=== PATIENT | female | born 1965 | race Caucasian/White ===

== ENCOUNTER 2016-12-04 19:38 | Emergency (ER) | payer MEDICAID ==
[~2016-12-04] VITALS: Ht 175.3 cm; Wt 80.6 kg
[~2016-12-04 19:38] MED LIST: CIPR500T4 PO; FIORIC PO; NORE1TAB60 PO; PYRI200T4 PO; TAB-TAB PO
[2016-12-04 20:01] VITALS: BP 113/76; PULSE 86; RESP 18; TEMP 98.9; O2SAT 98
[2016-12-04] MEDS ORDERED: ALBU6.7H INH (20:17)
[2016-12-04] MEDS ORDERED: SYMB80AE INH (20:17)
[2016-12-04] MEDS ORDERED: KETOROLAC TROMETHAMINE 60 MG/2 ML (IM) VIAL IM ONE (20:30)
[2016-12-04] MEDS ORDERED: ONDANSETRON ODT 4 MG TAB PO ONE (20:45)
--- NOTE | 2016-12-04 20:46 | RADHPO ---
EXAM DATE/TIME: 12/04/2016 20:32 [facility] COMPARISON: No previous studies available for comparison. INDICATIONS : Right ankle pain post fall down staris. MEDICAL HISTORY : None. SURGICAL HISTORY : None. ENCOUNTER: Initial ACUITY: 1 day PAIN SCORE: 9/10 LOCATION: Right ankle. FINDINGS: Three view exam was performed of the right ankle. The bony structures are in normal alignment. No e vidence of fracture, dislocation, with soft tissue swelling laterally.. The ankle mortise is intact. No radiopaque foreign bodies are seen. Bony mineralization is normal. Calcaneal spur at insertion Achilles tendon CONCLUSION: No acute bony injury Bonilla Squires MD on December 04, 2016 at 20:43 Board Certified Radiologist. This report was verified electronically.
--- NOTE | 2016-12-04 20:56 | PD ---
HPI Chief Complaint: Injury Time Seen by Provider: 20:20 Travel History International Travel<30 days: No Contact w/Intl Traveler<30days: No Traveled to known affect area: No History of Present Illness HPI Patient is a 50-year-old female presenting with right ankle pain. 2 hours prior to exam she states she was walking down stairs when she slipped and fell. She landed on her buttocks and then slid down the stairs. She hit the back of her head on the stairs but denies headache or loss of consciousness. She states 15 minutes later she was driving when she pressed the accelerator the ankle hurt and this caused her to get nauseated and lightheaded. She has some residual nausea but denies vomiting or abdominal pain. She denies dizziness or loss of consciousness, no daily aspirin or anticoagulant drugs. She denies any neck pain. She denies weakness or paresthesias in her extremities. She denies any pain in the foot, calf or knee on the right. PFSH Past Medical History Asthma: Yes Diminished Hearing: No Headaches: Yes Musculoskeletal: Yes (back pain) Respiratory: Yes (ASTHMA) Tetanus Vaccination: < 5 Years Influenza Vaccination: No ?: Not Past Surgical History Abdominal Surgery: Yes (hysterectomy) Body Medical Devices: (L) leg hardware Section: Yes (X's 2) Gynecologic Surgery: Yes (for endometrosis) Hysterectomy: Yes Tonsillectomy: Yes Social History Alcohol Use: No (denies any present any use) Tobacco Use: No Substance Use: No Allergies-Medications (Allergen,Severity, Reaction): Coded Allergies: Erythromycin (Verified Allergy, Severe, Anaphylaxis, 12/04/16) Onion (Verified Allergy, Severe, VOMIT, 12/04/16) Penicillin (Verified Allergy, Severe, Anaphylaxis, 12/04/16) Sulfa (Verified Allergy, Severe, HIVES, 12/04/16) Reported Meds & Prescriptions Reported Meds & Active Scripts Active Ibuprofen 600 Mg Tab 600 Mg PO Q8HR PRN Reported Symbicort Inh (Budesonide/Formoterol Fumarate) 80-4.5 Mcg/Act Aero 2 Puff INH Q12HR Proventil Hfa 6.7 GM Inh (Albuterol Sulfate) 90 Mcg/Act Aer 1 Puff INH Q4H PRN Review of Systems Except as stated in HPI: all other systems reviewed are Neg Physical Exam Narrative GENERAL: Well-developed and well-nourished adult female in no acute distress. SKIN: Warm and dry. Good turgor without tenting. HEAD: Normocephalic and atraumatic. No hematoma or laceration, mild tenderness palpation of the left posterior occiput. Negative arias and raccoon sign. EYES: PERRL bilaterally, 5mm. EOMI bilaterally. No injection or icterus present. No proptosis. Lids without edema or erythema. ENT: Buccal mucosa pink and moist. Oropharynx free of erythema, tonsillar hypertrophy, masses, swelling, asymmetry and exudates. Uvula midline and airway patent. NECK: Supple, no midline tenderness, crepitus or step-offs. Trachea midline, no JVD. No cervical or facial lymphadenopathy. CARDIOVASCULAR: Regular rate and rhythm without murmurs, rubs, clicks or gallops. Radial, dorsalis pedis and posterior tibial pulses 2+ bilaterally. Brisk capillary refill, less than 2 second, distal tip of all toes of right foot. No pedal edema. RESPIRATORY: Clear to auscultation bilaterally with symmetrical rise and fall, no distress or use of accessory muscles. GASTROINTESTINAL: Non-tender, non-distended. Normal bowel sounds all 4 quadrants. No masses or organomegaly present. MUSCULOSKELETAL: Right ankle has some mild edema laterally without ecchymosis or erythema or warmth. There is lateral and medial malleoli tenderness on the right, lateral greater than medial. No increased laxity of the foot. Patient is most tender over the right anterior talofibular ligament. This range of motion in R dorsiflexion of the right ankle secondary to pain. She can move all 5 toes of the right foot. No pain with palpation of the right tib-fib or knee. Normal range of motion in the right knee. Patient freely moving all four extremities spontaneously. Extremities without clubbing, cyanosis, or edema. No obvious deformities. NEUROLOGIC: CN II-XII grossly intact. Awake and alert. Strength 5/5 bilateral knee flexion, knee extension, plantar and dorsiflexion. Sensation intact distal tip of all toes of right foot. Normal speech. PSYCHIATRIC: Appropriate mood and affect; insight and judgment normal. Data Data Last Documented VS Vital Signs Date Time Temp Pulse Resp B/P Pulse Ox O2 Delivery O2 Flow Rate FiO2 12/04/16 20:01 98.9 86 18 113/76 98 Orders Ketorolac Inj (Toradol Inj) (12/04/16 20:30) Ankle, Complete (Mik3ysx) (12/04/16 20:27) Ice/Cold Pack (12/04/16 20:27) Ondansetron Odt (Zofran Odt) (12/04/16 20:45) Ct Brain W/O Iv Contrast(Rout) (12/04/16 ) Splint Or Brace Apply/Monitor (12/04/16 20:56) Iohexol 350 Inj (Omnipaque 350 Inj) (12/04/16 21:03) MDM Medical Decision Making Medical Screen Exam Complete: Yes Emergency Medical Condition: Yes Differential Diagnosis Ankle sprain versus ankle fracture versus ankle contusion versus concussion versus skull fracture versus intracranial hemorrhage Narrative Course Patient is a 50-year-old female with chief pain of right ankle pain. She does have some tenderness over the medial and lateral malleoli are surface of the right ankle without increased laxity or significant edema or ecchymosis. She is neurovascular intact. He slipped and fell down some stairs and ended hitting her head lightly she claims and has had some minor dizziness and nausea which she achieved to the ankle pain. She has no other neurologic symptoms and her neurologic exam is normal. Given the mechanism, distracting injury and patient's age ordered CT of the head as well as right ankle x-ray. Patient was given Toradol and Zofran. X-ray of the ankle showed no fracture or subluxation. Patient was given Ronny wrap and crutches. CT head was unremarkable. Patient is given prescription for ibuprofen 600 mg.See discharge paperwork for further instructions. The plan was discussed with the patient who acknowledged their understanding and agreement. Reinforced the follow-up with primary care is critically important. Patient instructed on emergent conditions that should prompt return to ED. Diagnosis Primary Impression: Sprain of anterior talofibular ligament of right ankle Qualified Code: S93.491A - Sprain of anterior talofibular ligament of right ankle, initial encounter Additional Impression: Concussion Qualified Code: S06.0X0A - Concussion, without loss of consciousness, initial encounter Patient Instructions: Ankle Sprain (ED), Ankle Sprain Exercises (GEN), General Instructions Additional Instructions: Recommend rest and avoid overexertion Recommend avoiding activities that could result in additional falls or head injuries Take medications as prescribed Apply ice every 1 to 2 hours as needed for pain Avoid maneuvers that aggravate pain Keep RONNY bandage on while being active or using extremity Use crutches when walking to avoid pressure on joint Elevate when at rest Be aware that may take several weeks for sprains to heal fully Follow-up with PCP in 2-3 days Return to the ED for any acute worsening of symptoms Med/Other Pt SpecificInfo: Prescription(s) given Scripts Ibuprofen 600 Mg Jeg300 Mg PO Q8HR PRN (PAIN) #12 TAB Ref 0 Prov:Ben Recinos MD 12/04/16 Disposition: 01 DISCHARGE HOME Condition: Stable Benson Dill III Dec 04, 2016 20:56
--- NOTE | 2016-12-04 20:59 | RADHPO ---
EXAM DATE/TIME: 12/04/2016 20:41 [facility] COMPARISON: No previous studies available for comparison. INDICATIONS : Mechanical fall. Posterior head trauma. RADIATION DOSE: 67.53 CTDIvol (mGy) MEDICAL HISTORY : None SURGICAL HISTORY : Tonsillectomy. Hysterectomy. ENCOUNTER: Initial ACUITY: 1 day PAIN SCALE: 6/10 LOCATION: occipital TECHNIQUE: Multiple contiguous axial images were obtained of the head. Using automated exposure control and adj ustment of the mA and/or kV according to patient size, radiation dose was kept as low as reasonably a chievable to obtain optimal diagnostic quality images. FINDINGS: CEREBRUM: The ventricles are normal for age. No evidence of midline shift, mass lesion, hemorrhage or acute in farction. No extra-axial fluid collections are seen. POSTERIOR FOSSA: The cerebellum and brainstem are intact. The 4th ventricle is midline. The cerebellopontine angle i s unremarkable. EXTRACRANIAL: The visualized portion of the orbits is intact. SKULL: The calvaria is intact. No evidence of skull fracture. CONCLUSION: Normal examination. Bonilla Squires MD on December 04, 2016 at 20:57 Board Certified Radiologist. This report was verified electronically.
[2016-12-04] MEDS ORDERED: IOHEXOL 350 MG/ML 10 ML VIAL (for RAD DIAG) IV ONE (21:03)
[2016-12-04] MEDS ORDERED: IBUP-232 PO (21:03)
== END 2016-12-04 21:18 | disposition home or self-care (01) ==
LOC: PHEFT 19:38
DX: S93.491A Sprain of other ligament of right ankle, initial encounter (principal); S06.0X0A Concussion without loss of consciousness, initial encounter; R11.0 Nausea; R42 Dizziness and giddiness; J45.909 Unspecified asthma, uncomplicated; W10.8XXA Fall (on) (from) other stairs and steps, initial encounter
CPT/HCPCS: 70450; 73610; 96372; 99284; E0113; J1885; Q9967

== ENCOUNTER 2017-12-08 06:38 | Emergency (ER) | payer MEDICAID, OTHER ==
[~2017-12-08] VITALS: Ht 175.3 cm; Wt 80.0 kg
[~2017-12-08 06:38] MED LIST changes: +ALBU6.7H INH; -CIPR500T4 PO; -FIORIC PO; +IBUP-232 PO; -NORE1TAB60 PO; -PYRI200T4 PO; +SYMB80AE INH; -TAB-TAB PO
[2017-12-08] MEDS ORDERED: MELA5 PO (06:43)
[2017-12-08] MEDS ORDERED: MULT-65 PO (06:43)
[2017-12-08] MEDS ORDERED: ESTR2TAB PO (06:43)
[2017-12-08 06:44] VITALS: BP 116/71; PULSE 68; RESP 18; TEMP 97.8; O2SAT 98
[2017-12-08 07:10] VITALS: RESP 16; O2SAT 98
[2017-12-08 07:15] VITALS: BP 108/59; PULSE 62; RESP 16; O2SAT 98
[2017-12-08] MEDS ORDERED: ASPIRIN 81 MG CHEW TAB PO ONE (07:45)
[2017-12-08] MEDS ORDERED: SODIUM CHLORIDE 0.9% FLUSH 10 ML FLUSH IVF PRN (07:45)
--- NOTE | 2017-12-08 07:58 | PD ---
HPI . Chest pain Chief Complaint: Chest Pain Time Seen by Provider: 07:06 Travel History International Travel<30 days: No Contact w/Intl Traveler<30days: No Traveled to known affect area: No History of Present Illness HPI This patient presents with a chief complaint of chest pain. Onset was this morning. It has been getting progressively worse. It starts in the center of her chest and radiates to her left neck and shoulder. She rates the pain at 4/ 10 and notes no modifying factors. This patient reports the onset of cold symptoms a couple of days ago. She states that everyone in her office has cold-like symptoms. She states that she started with a sore throat and just feeling generally poorly. She does have a cough but it is mild and nonproductive. She has a medical history of asthma. [facility] Past Medical History Asthma: Yes Diminished Hearing: No Headaches: Yes Musculoskeletal: Yes (back pain) Respiratory: Yes (ASTHMA) Immunizations Current: Yes Influenza Vaccination: No ?: Not Past Surgical History Abdominal Surgery: Yes (hysterectomy) Body Medical Devices: (L) leg hardware Section: Yes (X's 2) Gynecologic Surgery: Yes (for endometrosis) Hysterectomy: Yes Tonsillectomy: Yes Social History Alcohol Use: No (rare) Tobacco Use: No (never) Substance Use: No Allergies-Medications (Allergen,Severity, Reaction): Coded Allergies: Sulfa (Sulfonamide Antibiotics) (Unverified Allergy, Severe, HIVES, ) erythromycin base (Unverified Allergy, Severe, Anaphylaxis, 12/08/17) onion (Unverified Allergy, Severe, VOMIT, 07/12/17) penicillin G (Unverified Allergy, Severe, Anaphylaxis, 12/08/17) Reported Meds & Prescriptions Reported Meds & Active Scripts Active Reported Melatonin 5 Mg Tab 5 Mg PO HS Multi-Vitamin Daily (Multiple Vitamin) 1 Tab Tab 1 Tab PO DAILY Estradiol 2 Mg Tab 2 Mg PO DAILY Review of Systems Except as stated in HPI: all other systems reviewed are Neg General / Constitutional: No: Fever, Chills HENT: Positive: Lightheadedness, Sore Throat Cardiovascular: Positive: Chest Pain or Discomfort Respiratory: Positive: Cough, No: Shortness of Breath Gastrointestinal: Positive: Nausea Physical Exam Narrative GENERAL: Awake and alert and in no acute distress. SKIN: Warm and dry. Normal color and turgor. HEAD: Normocephalic/atraumatic. EYES: Pupils are equal. Extraocular movements are intact. No conjunctival injection or discharge. ENT: No edema of the nasal turbinates. Oropharynx has no erythema, and she date or tonsillar enlargement. NECK: Normal range of motion. No cervical lymphadenopathy. CARDIOVASCULAR: Regular rate and rhythm. Heart sounds are normal. RESPIRATORY: Nonlabored respirations. Lungs are clear with full air movement throughout. She does have chest wall tenderness in the center of her chest and on the left side of her chest. MUSCULOSKELETAL: Atraumatic. No peripheral edema. NEUROLOGICAL: Nonfocal. PSYCHIATRIC: Appropriate mood and affect. Data Data Last Documented VS Vital Signs Date Time Temp Pulse Resp B/P (MAP) Pulse Ox O2 Delivery O2 Flow Rate FiO2 12/08/17 07:15 62 16 108/59 (75) 98 Nasal Cannula 2.00 12/08/17 06:44 97.8 Orders Orders Basic Metabolic Panel (Bmp) (12/08/17 07:39) Complete Blood Count With Diff (12/08/17 07:39) Magnesium (Mg) (12/08/17 07:39) Troponin I (12/08/17 07:39) Chest, Single Ap (12/08/17 07:39) Ecg Monitoring (12/08/17 07:39) Iv Access Insert/Monitor (12/08/17 07:39) Oximetry (12/08/17 07:39) Aspirin Chew (Aspirin Chew) (12/08/17 07:45) Sodium Chloride 0.9% Flush (Ns Flush) (12/08/17 07:45) Chest, Expiration Only (12/08/17 08:48) Labs Laboratory Tests Test 12/08/17 06:55 12/08/17 08:48 Blood Urea Nitrogen 18 MG/DL Creatinine 1.00 MG/DL Random Glucose 84 MG/DL Calcium Level 8.5 MG/DL Magnesium Level 2.1 MG/DL Sodium Level 139 MEQ/L Potassium Level 4.3 MEQ/L Chloride Level 100 MEQ/L Carbon Dioxide Level 27.8 MEQ/L Anion Gap 11 MEQ/L Estimat Glomerular Filtration Rate 58 ML/MIN Troponin I LESS THAN 0.02 NG/ML White Blood Count 7.0 TH/MM3 Red Blood Count 4.40 MIL/MM3 Hemoglobin 12.8 GM/DL Hematocrit 38.8 % Mean Corpuscular Volume 88.2 FL Mean Corpuscular Hemoglobin 29.2 PG Mean Corpuscular Hemoglobin Concent 33.1 % Red Cell Distribution Width 11.8 % Platelet Count 155 TH/MM3 Mean Platelet Volume 9.1 FL Neutrophils (%) (Auto) 54.2 % Lymphocytes (%) (Auto) 35.2 % Monocytes (%) (Auto) 5.9 % Eosinophils (%) (Auto) 1.8 % Basophils (%) (Auto) 2.9 % Neutrophils # (Auto) 3.8 TH/MM3 Lymphocytes # (Auto) 2.5 TH/MM3 Monocytes # (Auto) 0.4 TH/MM3 Eosinophils # (Auto) 0.1 TH/MM3 Basophils # (Auto) 0.2 TH/MM3 CBC Comment DIFF FINAL Differential Comment MDM Medical Decision Making Medical Screen Exam Complete: Yes Emergency Medical Condition: Yes Interpretation(s) EKG shows a normal sinus rhythm no ST segment elevation or depression. Differential Diagnosis Differential diagnosis of chest pain includes but is not limited to musculoskeletal pain, pulmonary embolism, acute coronary syndrome, pneumonia, pleurisy Narrative Course This patient presents with the chief complaint of chest pain. Onset was this morning. The chest pain is reproducible. The patient has an upper respiratory infection as well. Her chest pain is likely chest wall pain. Last Impressions Chest X-Ray 12/08/17 0848 Signed Impressions: Service Date/Time: November 08:54 - CONCLUSION: No acute disease. No pneumothorax. Eddie Rocha MD Chest X-Ray 12/08/17 0739 Signed Impressions: Service Date/Time: November 08:09 - CONCLUSION: Questionable left apical pneumothorax. Repeat expiration view recommended. Eddie Rocha MD Her initial chest x-ray showed a questionable apical pneumothorax. The follow- up expiratory chest x-ray was negative. CBC Diagram 12/08/17 08:48 BMP Diagram 12/08/17 06:55 Calcium Level 8.5, Magnesium Level 2.1 trop < 0.02 No significant etiology for chest pain was found. The most likely etiology of her chest pain is musculoskeletal due to her cold. Diagnosis Primary Impression: Chest pain Qualified Codes: R07.9 - Chest pain, unspecified Additional Impression: Upper respiratory infection Qualified Codes: J06.9 - Acute upper respiratory infection, unspecified; B97.89 - Other viral agents as the cause of diseases classified elsewhere Additional Instructions: I recommend the use of a Neti Pot. You may use a nasal spray such as Afrin for up to 3 days as needed for nasal congestion. You may take an [id number] antihistamine such as Zyrtec, Tita or Claritin as needed for runny secretions. You may take pseudoephedrine as needed for congestion. You will need to sign for this at the pharmacy. You may take plain Mucinex, 1200 mg twice a day as needed for thick secretions. You may take a cough syrup such as Delsym as needed for cough. Motrin as needed for fever and body aches. Throat lozenges/sprays as needed for sore throat. Warm salt water gargles for sore throat. Hot tea with lemon and honey also helps soothe a sore throat. Disposition: 01 DISCHARGE HOME Condition: Stable Karolina Espinosa MD Dec 08, 2017 07:58
[2017-12-08 08:02] LABS: GLOMERULAR FILTRATION RATE 58 ML/MIN (>89)
[2017-12-08 08:03] LABS: BLOOD UREA NITROGEN 18 MG/DL (7-18); CHLORIDE 100 MEQ/L (98-107); GLUCOSE,RANDOM 84 MG/DL (74-106); SODIUM (NA) 139 MEQ/L (136-145)
[2017-12-08 08:15] VITALS: BP 101/48; PULSE 55; RESP 16; O2SAT 100
[2017-12-08 08:26] LABS: AUTOMATED NEUTROPHIL # 3.8 TH/MM3 (1.8-7.7); BASOPHIL # 0.2 TH/MM3 (0-0.2); BASOPHIL % 2.9 % (0.0-2.0); EOSINOPHIL # 0.1 TH/MM3 (0-0.4); EOSINOPHIL % 1.8 % (0.0-4.0); HEMATOCRIT 38.8 % (35.0-46.0); HEMOGLOBIN 12.8 GM/DL (11.6-15.3); LYMPH % 35.2 % (9.0-44.0); LYMPHOCYTE # 2.5 TH/MM3 (1.0-4.8); MEAN CELL VOLUME 88.2 FL (80.0-100.0); MEAN CORPUSCULAR HEMOGLOBIN 29.2 PG (27.0-34.0); MEAN CORPUSCULAR HGB CONC 33.1 % (32.0-36.0); MEAN PLATELET VOLUME 9.1 FL (7.0-11.0); MONO % 5.9 % (0.0-8.0); MONOCYTE # 0.4 TH/MM3 (0-0.9); NEUT % 54.2 % (16.0-70.0); PLATELET COUNT 155 TH/MM3 (150-450); RED CELL DISTRIBUTION WIDTH 11.8 % (11.6-17.2)
--- NOTE | 2017-12-08 08:27 | RADRPT ---
EXAM DATE/TIME: 12/08/2017 08:09 [facility] COMPARISON: No previous studies available for comparison. INDICATIONS : Chest pain. MEDICAL HISTORY : None. SURGICAL HISTORY : None. ENCOUNTER: Initial ACUITY: 1 day PAIN SCORE: 3/10 LOCATION: Bilateral chest FINDINGS: A single view of the chest demonstrates the lungs to be symmetrically aerated without evidence of mas s, infiltrate or effusion. Questionable left apical pneumothorax. The cardiomediastinal contours are unremarkable. Osseous structures are intact. CONCLUSION: Questionable left apical pneumothorax. Repeat expiration view recommended. Eddie Rocha MD on December 08, 2017 at 8:24 Board Certified Radiologist. This report was verified electronically.
[2017-12-08 09:04] LABS: CALCIUM 8.5 MG/DL (8.5-10.1)
--- NOTE | 2017-12-08 09:06 | RADRPT ---
EXAM DATE/TIME: 12/08/2017 08:54 [facility] COMPARISON: CHEST SINGLE AP, December 08, 2017, 8:09 INDICATIONS : Chest pain. MEDICAL HISTORY : None. SURGICAL HISTORY : None. ENCOUNTER: Subsequent ACUITY: 1 day PAIN SCORE: 3/10 LOCATION: Bilateral chest FINDINGS: A single frontal expiratory view of the chest was performed. The lungs are symmetrically aerated and clear. No evidence of pneumothorax. Mediastinal structures are in the midline. The cardio-mediastinal contours and bronchopulmonary markings are unremarkable for an expiratory exam . Osseous structures are intact. CONCLUSION: No acute disease. No pneumothorax. Eddie Rocha MD on December 08, 2017 at. 9: 02 Board Certified Radiologist. This report was verified electronically.
[2017-12-08 09:13] LABS: TROPONIN I LESS THAN 0.02 NG/ML (0.02-0.05)
[2017-12-08 09:15] VITALS: BP 107/53; PULSE 58; RESP 16; O2SAT 99
[2017-12-08 09:20] LABS: BICARBONATE 27.8 MEQ/L (21.0-32.0); MAGNESIUM 2.1 MG/DL (1.5-2.5)
[2017-12-08 10:15] VITALS: BP 105/52; PULSE 60; RESP 16; O2SAT 99
--- NOTE | 2017-12-08 18:23 | EKG ---
Date Performed: 12/08/2017 Time Performed: 06:46:22 PTAGE: 51 years EKG: Sinus rhythm LOW QRS VOLTAGE IN PRECORDIAL LEADS POSSIBLE RIGHT VENTRICULAR CONDUCTION DELAY BORDERLINE ECG INTER PRETATION BASED ON A DEFAULT AGE OF 40 YEARS NO PREVIOUS TRACING DOCTOR: Paris Marsh Interpretating Date/Time 12/08/2017 18:22:30
== END 2017-12-08 11:21 | disposition home or self-care (01) ==
LOC: PHED 06:38
DX: R07.9 Chest pain, unspecified (principal); J06.9 Acute upper respiratory infection, unspecified; B97.89 Other viral agents as the cause of diseases classified elsewhere
CPT/HCPCS: 71045; 80048; 83735; 84484; 85025; 93005; 99285